=== PATIENT | female | born 1975 | race Caucasian/White ===

== ENCOUNTER 2016-08-04 16:40 | Emergency (ER) | payer SELFPAY ==
[~2016-08-04] VITALS: Ht 170.2 cm; Wt 81.6 kg
[2016-08-04 17:09] VITALS: BP 116/64
--- NOTE | 2016-08-04 17:25 | ED.ADGEN ---
Adult General Chief Complaint Chief Complaint Left arm injury HPI HPI Patient is a 41-year-old right-handed female presents with left arm injury approximately 9 days prior to ED arrival. 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 The door was slammed and was closed by a spring. Patient has not seen a PCP or work comp physician was referred to the ED for further evaluation. Patient continued left arm use as limited pain relief despite ibuprofen. Review of Systems Review of Systems Review of symptoms as per history of present illness. All other review symptoms are negative. Physical Exam Physical Exam Constitutional: Well developed, well nourished, no acute distress, non-toxic appearance. Extremities: Left upper extremity, no deformity, bruising, soft tissue tenderness over the junction over mid and distal forearm. Pain reproduces with extension and flexion. Neurologic: Alert and oriented X 3, upper extremity, no motor weakness or loss of sensation. Psychologic: Affect normal, judgement normal, mood normal. [] EKG EKG [] Radiology/Procedures Radiology/Procedures [] Impressions: Persistent left arm soft tissue pain with continued left arm use from injury that occurred 9 day TPA. Course & Med Decision Making Course & Med Decision Making Pertinent Labs and Imaging studies reviewed. (See chart for details) [Patient placed in compression wrap and arm sling for rest. Instructed to continued ibuprofen until she can be seen by her work comp physician or on-call PCP. Left arm use restrict until by her physician Final Impression Final Impression [1. Left arm pain] Problems: Dragon Disclaimer Dragon Disclaimer This electronic medical record was generated, in whole or in part, using a voice recognition dictation system. CARLOS FELICIANO DO Aug 04, 2016 17:25
== END 2016-08-04 17:27 | disposition home or self-care (01) ==
LOC: ER 16:40
DX: S49.92XA Unspecified injury of left shoulder and upper arm, initial encounter (principal); M79.602 Pain in left arm; W22.8XXA Striking against or struck by other objects, initial encounter; Y93.89 Activity, other specified; Y99.8 Other external cause status; Y92.89 Other specified places as the place of occurrence of the external cause
CPT/HCPCS: 99282

== ENCOUNTER → 2016-09-17 | Outpatient (CLI) | payer OTHER ==
--- NOTE | 2016-09-17 15:10 | RAD ---
Indication pain. AP oblique and lateral views of the left wrist were obtained as well as a navicular view. No bony abnormality is seen
== END | disposition home or self-care (01) ==
LOC: DXRADRC 14:49
PROVIDERS: ATTEND General Practice
DX: S63.502A Unspecified sprain of left wrist, initial encounter (principal); X58.XXXA Exposure to other specified factors, initial encounter; Y93.89 Activity, other specified; Y92.89 Other specified places as the place of occurrence of the external cause; Y99.8 Other external cause status
CPT/HCPCS: 73110

== ENCOUNTER → 2019-11-08 | Outpatient (CLI) | payer OTHER ==
--- NOTE | 2019-11-09 10:19 | RAD ---
Esophagram 11/08/2019 INDICATION: Frequent vomiting following meals. Postprandial discomfort. Discussion: Oral effervescent crystals were administered followed by thick the upper position. This was followed by thin barium in the prone position, and a 13 mm barium tablet in the upright position. Esophageal motility is grossly normal. No significant tertiary contractions are identified. No mucosal lesions are identified. No evidence of mass or stricture is seen. No abnormal diverticula are identified. No significant hiatal hernia is seen. GE junction is normal in position and appearance. 13 mm barium tablet passes freely through the GE junction. No reflux was elicited despite provocative maneuvers. Fluoroscopy time: Inadvertently not recorded Dose area product: Inadvertently not recorded Impression: Normal esophagram Electronically signed by: Alireza Garcia MD (11/09/2019 10:17 AM) [id number]
== END | disposition home or self-care (01) ==
LOC: RAD 10:31
PROVIDERS: ATTEND Nurse Practitioner Family
DX: R10.9 Unspecified abdominal pain (principal); R11.10 Vomiting, unspecified
CPT/HCPCS: 74220